=== PATIENT | male | born 1995 | race Two or more races ===

== ENCOUNTER 2016-06-06 09:53 | Emergency (ER) | payer OTHER, BC ==
[2016-06-06 10:26] VITALS: BMI 29.0
[2016-06-06] MEDS ORDERED: NS 1,000 ML IV ONE ×2 (10:36)
[2016-06-06] MEDS ORDERED: SODIUM CHLORIDE 0.9% 3 ML FLUSH FLUSH PRN (10:36)
[2016-06-06] MEDS ORDERED: LORAZEPAM 2 MG/ML VIAL IV ONE (10:37)
--- NOTE | 2016-06-06 10:39 | EDPRACDOC ---
- General Information Chief Complaint: Neuro Symptoms/Deficits Stated Complaint: WEAKNESS/RT ARM PAIN Time Seen by Provider: 06/06/16 10:35 Information Source: Patient Mode of Arrival: Ambulance Home Medications: Home Medications Multivitamin [Daily Vitamin] 1 each PO DAILY 05/23/14 [employer] 1 tab PO DAILY 06/06/16 Allergies/Adverse Reactions: Allergies Allergy/AdvReac Type Severity Reaction Status Date / Time No Known Allergies Allergy Verified 06/06/16 10:26 - History of Present Illness Onset: THIS AM HPI: PT C/O RT ARM PAIN NO INJURY FACE TINGLING AND TROUBLE CONCENTRATING AFTER TAKING A DIET PILL THAT HE BOUGHT OVER THE COUNTER WHICH HE STATES IS A THERMOGENIC([employer] VANISH) THIS AM. NO SOB OR CP AT THIS TIME. Symptoms Started: Reports: Suddenly Relevant History: Reports: None Heart Rate (bpm): 61 Defibrillator Firing: No Worsens with: Reports: Nothing Associated signs & symptoms: Reports: Other (FACIAL TINGLING SOB TROUBLE SPEAKING AND CONCENTRATING AND RIGHT ARM PAIN) Chest Pain Location: Reports: No Pain Pain Quality: Reports: None Pain Radiation: Reports: None ED Past Medical History - History Reviewed Yes Nurses notes reviewed and agree except as marked Travel Outside of [place] in the Last 3 Months?: No No Past Medical History: Yes Patient has no past medical history - Patient Medical History Systemic History: Denies: Cancer - Family Medical History 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 Denies: Diabetes, Cancer, Stroke, Cardiac Disorders - Social Medical History Smoking Status: Never smoker ETOH: None Substance Abuse: None Lives With: Other Lives In: Home EDM Review of Systems - Review of Systems ROS Negative Except as Marked: Yes All systems reviewed and were negative except as marked Constitutional: No Symptoms Reported. negative: Fever, Chills, Weakness, Fatigue, Loss of Appetite Eyes: No Symptoms Reported. negative: Redness, Blurred Vision, Double Vision, Discharge, Pain, Light Sensitive, Photophobia Ears: No Symptoms Reported. negative: Pain, Hearing Loss, Drainage, Ear Pulling Throat: No Symptoms Reported. negative: Pain, Swelling Nose: No Symptoms Reported. negative: Congestion, Bleeding, Discharge, Injection, Swelling, Deformity, Ecchymosis, Tender, Abrasion, Laceration Mouth: No Symptoms Reported. negative: Pain, Drooling Respiratory: No Symptoms Reported. negative: Cough, Brassy Cough, Barky Cough, Shortness of Breath, Wheezing, Hemoptysis Cardiovascular: No Symptoms Reported. negative: Chest Pain, Palpitations, Syncope, Edema, Orthopnea, PND, Skin Mottling, Cyanosis Gastrointestinal: No Symptoms Reported. negative: Pain, Constipation, Nausea, Vomiting, Diarrhea, Melena, Formula Intolerance Genitourinary: No Symptoms Reported. negative: Dysuria, Hematuria, Frequency, Discharge, Bleeding, Testicular Pain, Neurological: No Symptoms Reported. negative: Headache, Dizziness, Seizure, Numbness, Weakness, Speech Difficulty, Gait Difficulty Musculoskeletal: No Symptoms Reported. negative: Neck, Chestwall, Ribs, Back, Shoulder, Arm, Elbow, Forearm, Wrist, Hand, Pelvis, Hip, Femur, Knee, Leg, Ankle , Foot Integumentary: No Symptoms Reported. negative: Itching, Rash, Bruising, Wound Allergic/Immunologic: No Symptoms Reported. negative: Hives, Itching Hematologic: No Symptoms Reported. negative: Lymphadenopathy, Easy Bruising, Easy Bleeding Endocrine: No Symptoms Reported. negative: Weight Gain, Weight Loss Psychiatric: No Symptoms Reported. negative: Anxiety, Depression, Hallucinations, Insomnia, Suicidal ROS Comments: PT STATES HE FEELS ALMOST BACK TO NORMAL AND DOES NOT C/O ANY SYMPTOMS AT THIS TIME. - Physical Exam Constitutional: Alert (Awake), No apparent distress Oriented to: Time, Person, Place Last recorded Vital Signs: Last Vital Signs Temp 98.6 F 06/06/16 10:22 Pulse 63 06/06/16 10:22 Resp 20 06/06/16 10:22 BP 158/90 06/06/16 10:22 Pulse Ox 99 06/06/16 10:22 Oxygen Pulse Oxygen Saturation 99 O2 Device Oxygen Flow Rate Fraction of Inspired Oxygen ( FIO2) - HEENT Head: Normal ( normocephalic) Eye Exam: Normal (PERRL, EOMI, Sclera white) Oropharynx: Normal (Pharynx:Moist without exudate,Gums-no swelling) Tympanic Membrane: Normal ENT EAC: Normal TMJ: Normal Nose: No Symptoms Reported (septum midline) Neck: Normal (FROM, trachea at midline) - Respiratory/Cardiovascular Respiratory: Normal - CTA (BBS clear to auscultation without adventitious sounds ) Cardiovascular: Normal (RRR without murmur, gallop or rub) - GI Auscultation: Normal (NABS) Palpation: Normal (Soft,No rebound or guarding, non distended) Tenderness: Non tender Toussaint's Sign: Negative - Musculoskeletal Back: Normal (Non-Tender) Extremities: Normal (Normal tone, Pulses 2+ No cyanosis or edema, FROM) - Integumentary Skin: Normal, Warm, Dry Lymphatics: Normal (no adenopathy) - Neurologic Memory Impaired: Normal Motor Function: Normal (Normal tone, Pulses 2+ No cyanosis or edema, FROM) Cranial Nerve: Normal (CN II-X11 intact sensation, strength 5/5) Cerebellar: Normal Mood Description: Normal Perception: Normal - Differential Diagnosis Atrial fibrillation, PSVT, WPW, PVC's, Anxiety/Panic attack, Electrolyte disorder, Hyperthyroidism, Other (ADVERSE DRUG REACTION) - Results 06/06/16 11:25 06/06/16 11:25 - EKG EKG #1 Initial EKG Time: 10:24 -: Yes EKG interpreted by me Rate: bpm: 61 [place]: Normal Rhythm: NSR Block: None Hypertrophy: None - Diagnostic Imaging CXR Image interpreted by: Radiologist IMPRESSION: No active disease. Decision Time to Discharge: 13:29 - Departure Disposition: Home Condition: Stable Final Diagnosis: Adverse drug reaction Instructions: Adverse Drug Reaction (ED) Education/Counseling Given To: Patient Education/Counseling Given Regarding: Diagnosis, Treatment, Prognosis, Follow Up Referrals: None,No Provider [Primary Care Provider] - One Week Additional Instructions: RETURN FOR WORSE OR DIFFERENT SYMPTOMS.
[2016-06-06 11:11] LABS: ALL NEG? YES; MDMA* NEG (NEGATIVE); METHAMPHETAMINES NEG (NEGATIVE); OXYCODONE NEG (NEGATIVE)
[2016-06-06 11:13] LABS: LEUKOCYTES/URINE NEG (NEGATIVE); NITRITE/URINE NEG (NEGATIVE); URINE OCCULT BLOOD NEG (NEG/TRACE); WBC/URINE 0-2 (0-2)
--- NOTE | 2016-06-06 11:33 | DIRPT ---
CLINICAL DATA: Palpitations EXAM: PORTABLE CHEST 1 VIEW COMPARISON: None. FINDINGS: Normal heart size. Normal mediastinal contour. No pneumothorax. No pleural effusion. Lungs appear clear, with no acute consolidative airspace disease and no pulmonary edema. IMPRESSION: No active disease. Electronically Signed By: Ang Silva M.D. On: 06/06/2016 11:30
[2016-06-06 11:41] LABS: AUTOMATED BASOPHIL 0.4 % (0-2); AUTOMATED EOSINOPHIL 1.1 % (0-5); AUTOMATED MONOCYTE 8.1 % (3-10); AUTOMATED NEUTROPHIL 74.4 % (45-76); MPV 8.6 fL (7.4-10.4)
[2016-06-06 11:52] LABS: PARTIAL THROMB. TIME 25.9 SEC (22-35)
[2016-06-06 12:02] LABS: BLOOD UREA NITROGEN 14 MG/DL (9-20); CALCIUM 9.9 MG/DL (8.4-10.2); CALCULATED OSMOLALITY 276 MOs/Kg (270-290); CHLORIDE 101 mEq/L (98-107); CPK TOTAL WITH POSSIBLE MB 552 IU/L (55-170); GLUCOSE 95 MG/DL (70-99); SODIUM LEVEL 143 mEq/L (137-146); TOTAL PROTEIN 8.4 G/DL (6.3-8.2)
[2016-06-06 13:05] LABS: CPKMB 3.8 ng/mL (0-4.5)
[2016-06-06 13:25] VITALS: BP 136/60
[2016-06-06 13:42] VITALS: PULSE 65; TEMP 98.4
[2016-06-06] MEDS ORDERED: SODIUM CHLORIDE 0.9% 3 ML FLUSH FLUSH SCH (18:00)
== END 2016-06-06 13:45 | disposition home or self-care (01) ==
LOC: ED 09:53
DX: M79.601 Pain in right arm (principal); R20.2 Paresthesia of skin; R06.02 Shortness of breath; T50.995A Adverse effect of other drugs, medicaments and biological substances, initial encounter
CPT/HCPCS: 36415; 71010; 80053; 80307; 81001; 82550; 82553; 83874; 84443; 84484; 85025; 85379; 85610; 85730; 93005; 99284